=== PATIENT | female | born 1995 | race Caucasian/White ===

== ENCOUNTER 2022-02-17 03:57 | Inpatient (IN) ==
[2022-02-17] MEDS ORDERED: BUTORPHANOL 2 MG/ML VIAL IV PRN (04:12)
[2022-02-17] MEDS ORDERED: MEPERIDINE 50 MG/1 ML VIAL IV PRN (04:12)
[2022-02-17] MEDS ORDERED: ONDANSETRON 4 MG/2 ML VIAL IV PRN (04:12)
[2022-02-17] MEDS ORDERED: hydrOXYzine HCL 25 MG/1 ML VIAL IM PRN (04:15)
[2022-02-17] MEDS ORDERED: PROMETHAZINE 25 MG/1 ML VIAL IM ONE (04:15)
[2022-02-17] MEDS ORDERED: ePHEDrine 50 MG/ML VIAL IV PRN (04:15)
[2022-02-17] MEDS ORDERED: NALOXONE 0.4 MG/ML VIAL IV PRN (04:15)
[2022-02-17] MEDS ORDERED: diphenhydrAMINE 50 MG/1 ML VIAL IV PRN ×2 (04:15)
[2022-02-17] MEDS ORDERED: FAMOTIDINE 20 MG/2 ML VIAL IV SCH (04:30)
[2022-02-17] MEDS ORDERED: fentaNYL 2 MCG/ROPIV 0.2% EPID 100 ML EPIDURAL SCH (04:30)
[2022-02-17] MEDS ORDERED: LACTATED RINGERS 1,000 ML IV SCH ×2 (04:30)
[2022-02-17] MEDS ORDERED: AMPICILLIN INJ 2,000 MG in SODIUM CHLORIDE 0.9% 100 ML IV ONE (04:32)
[2022-02-17 04:44] LABS: Basophils % 0.2 % (0.0-0.8); Eosinophils % 0.2 % (0.00-10.9); Hemoglobin 11.2 GM/DL (12.0-16.0); Immature Granulocytes % 1.8 %; Immature Granulocytes Absolute 0.35 #; Lymphocytes # 2.5 10*3/uL (1.4-4.0); Lymphocytes % 13.1 % (21.3-54.2); Mean Corpuscular Volume 92.8 FL (87-102); Mean Platelet Volume 10.7 FL (9.6-12.0); Monocytes % 3.6 % (1.7-12.7); Neutrophils % 81.1 % (38.7-73.9); Platelet Count 222 T/CUMM (130-400); Red Blood Count 3.45 MC/CUMM (3.8-5.5)
[2022-02-17] MEDS ORDERED: CITRIC ACID/SODIUM CITRATE 30 ML UDCUP PO ONE (05:16)
[2022-02-17] MEDS ORDERED: miSOPROStoL 200 MCG TABLET ONE (05:26)
[2022-02-17] MEDS ORDERED: TRANEXAMIC ACID 1,000 MG/10 ML VIAL ONE (05:26)
[2022-02-17] MEDS ORDERED: OXYTOCIN/LR 20 UNIT/1,000 ML BAG IV ONE ×3 (05:27→09:31)
[2022-02-17] MEDS ORDERED: CARBOPROST TROMETHAMINE 250 MCG/ML AMP IM ONE (05:27)
[2022-02-17] MEDS ORDERED: METHYLERGONOVINE 0.2 MG/1 ML AMP ONE (05:27)
[2022-02-17] MEDS ORDERED: SODIUM CHLORIDE 0.9% 0 ML IV ONE (05:27)
[2022-02-17 05:29] LABS: Alanine Aminotransferase 18 U/L (13-56); Albumin 2.9 G/DL (3.4-5.0); Alkaline Phosphatase 109 U/L (45-117); Aspartate Amino Transferase 24 U/L (0-37); Bilirubin,Total < 0.39 MG/DL (0.20-1.00); Blood Urea Nitrogen 15 MG/DL (7-18); Calcium 10.4 MG/DL (8.5-10.1); Carbon Dioxide 18 MMOL/L (21-32); Estimated Glom Filtration Rate 142 ML/MIN; Glucose 120 MG/DL (74-106); Potassium 3.5 MMOL/L (3.5-5.1); Sodium 136 MMOL/L (136-145); Total Protein 7.2 G/DL (6.4-8.2)
[2022-02-17] MEDS ORDERED: LIDOCAINE 1% 50 ML VIAL ONE (05:29)
[2022-02-17 05:59] LABS: HIV Antigen/Antibody Result Nonreactive (Nonreactive)
[2022-02-17 07:05] LABS: Cord Arterial Blood HCO3 20.3 MMOL/L
[2022-02-17 07:07] LABS: Cord Venous Blood HCO3 14.5 MMOL/L; Cord Venous Blood PCO2 51.6 MMHG; Cord Venous Blood PO2 28.9
[2022-02-17 07:47] LABS: Hepatitis B Surface Ag Quant < 0.10 Index; Hepatitis B Surface Ag Result Non-Reactive (NonReactive)
[2022-02-17] MEDS ORDERED: METHYLERGONOVINE 0.2 MG/1 ML AMP IM ONE (07:54)
[2022-02-17] MEDS ORDERED: AMPICILLIN INJ 1,000 MG in SODIUM CHLORIDE 0.9% 100 ML IV SCH (08:30)
[2022-02-17 09:41] LABS: Rubella Antibody IgG Result Reactive (NonReactive)
[2022-02-17] MEDS: LABETALOL 100 MG TABLET PO SCH ×2 (09:47→20:04)
[2022-02-17 11:02] LABS: Bilirubin,Direct < 0.100 MG/DL (0.0-0.20); Uric Acid 5.7 MG/DL (2.6-6.0)
[2022-02-17 11:22] LABS: INR 0.9; PT Patient Result 10.3 SECS (10.5-12.0); Partial Thromboplastin Time 23.8 SECS (23.8-32.1)
[2022-02-17] MEDS ORDERED: BENZOCAINE 20%/MENTHOL 0.5% SPRAY 56 GM CAN TOP PRN (11:22)
[2022-02-17] MEDS ORDERED: IBUPROFEN 800 MG TABLET PO PRN (16:27)
[2022-02-17] MEDS: DOCUSATE SODIUM 100 MG CAPSULE PO SCH (20:04)
[2022-02-17 23:39] LABS: Protein/Creatinine Ratio,Urine 1.7 RATIO
[2022-02-18 02:57] LABS: Basophils % 0.2 % (0.0-0.8); Eosinophils % 0.2 % (0.00-10.9); Hematocrit 26.7 VOL% (35.7-47.0); Hemoglobin 8.9 GM/DL (12.0-16.0); Immature Granulocytes % 1.3 %; Immature Granulocytes Absolute 0.19 #; Lymphocytes # 2.7 10*3/uL (1.4-4.0); Lymphocytes % 19.1 % (21.3-54.2); Mean Corpuscular HGB Conc 33.3 GM/DL (32-36); Mean Corpuscular Volume 96.4 FL (87-102); Mean Platelet Volume 10.1 FL (9.6-12.0); Monocytes % 4.9 % (1.7-12.7); Neutrophils % 74.3 % (38.7-73.9); Platelet Count 159 T/CUMM (130-400); Red Blood Count 2.77 MC/CUMM (3.8-5.5); Red Cell Distribution Width 13.2 % (9.3-17.3); White Blood Count 14.1 T/CUMM (4-12)
[2022-02-18] MEDS: LABETALOL 100 MG TABLET PO SCH ×2 (09:17→20:29)
[2022-02-18] MEDS: DOCUSATE SODIUM 100 MG CAPSULE PO SCH (22:24)
[2022-02-19 07:28] VITALS: BP 139/88
[2022-02-19] MEDS: DOCUSATE SODIUM 100 MG CAPSULE PO SCH (08:49)
[2022-02-19] MEDS: LABETALOL 100 MG TABLET PO SCH (08:49)
== END 2022-02-19 11:40 | disposition home or self-care (01) | DRG 768 ==
LOC: N.LD 03:57 → N.OB 11:14
PROVIDERS: ADMIT Obstetrics & Gynecology; ATTEND Obstetrics & Gynecology